=== PATIENT | female | born 1960 | race Caucasian/White ===

== ENCOUNTER 2017-02-21 09:07 | Emergency (ER) | payer OTHER ==
[2017-02-21 09:22] VITALS: PULSE 64; O2SAT 100
--- NOTE | 2017-02-21 09:41 | ERPHSYRPT ---
- History of Present Illness Time Seen by Provider: 02/21/17 09:34 Source: patient Exam Limitations: no limitations Patient Subjective Stated Complaint: ."I think that I might have DM. I have dry mouth, i pee a lot, i drink a lot; i have had blurred vission for 2 weeks. I told my PCP and they said she we can't do another one until March. I have been keeping track of my blood sugars and my fasting was 105-112. after i eat, it goes up to 160s." Triage Nursing Assessment: aox3, breathing easy unlbaored, skin pink warm dry, steady gait Physician History: This is a 56-year-old white female with history of migraines, GERD, anxiety, depression, endometriosis, fibroids, polycystic ovaries, H. pylori, reactive airway disease, mitral valve prolapse, pulmonary hypertension She arrives with complaints that she has been thirsty and urinating a lot and having of blurry vision symptoms for 2 weeks also states that she's been having a dry mouth. Patient states that she's been running fasting blood sugars of 105-1 Sebastian which goes up to 160 after eating. She states that she was concerned that she might be having a problem with her blood sugars she states she contacted her family physician and wanted a hemoglobin A1c was told that he cannot have one at this time. Patient has not had any fevers no nausea no vomiting. Past medical history includes migraines, GERD, anxiety, depression, endometriosis, fibroids, polycystic ovaries, H. pylori, reactive airway disease , mitral valve prolapse,, pulmonary hypertension. Past surgical history includes hysterectomy, lumpectomy, ORIF of right leg and ankle, EGD, right lumpectomy.. Timing/Duration: week(s) (symptoms for 2 weeks) Severity: mild Associated Symptoms: other (lurry vision dry mouth and urinating a lot), No nausea, No vomiting, No abdominal pain, No shortness of breath, No heartburn, No diaphoresis, No cough, No chills, No chest pain, No fever, No headaches, No loss of appetite, No malaise, No rash, No syncope, No seizure, No weakness Allergies/Adverse Reactions: Penicillins Allergy (Mild, Verified 06/10/16 16:14) Hives acetaminophen [From Vicodin] Adverse Reaction (Mild, Verified 06/10/16 16:14) Vomiting cephalexin monohydrate [From Keflex] Adverse Reaction (Mild, Verified 06/10/16 16:14) Stomach Pain codeine [Codeine] Adverse Reaction (Mild, Verified 06/10/16 16:14) Vomiting hydrocodone bitartrate [From Vicodin] Adverse Reaction (Mild, Verified 06/10/16 16:14) Vomiting propoxyphene HCl [From Darvon] Adverse Reaction (Mild, Verified 06/10/16 16:14) Nausea Home Medications: Lorazepam 0.5 mg [Ativan 0.5 MG] 0.05 mg PO TID 05/15/14 [History] Pravastatin Sodium 20 mg PO DAILY 10/20/15 [History] Omeprazole 20 MG [Prilosec 20 mg] 20 mg PO HS 12/05/15 [History] Hyoscyamine Sulfate 0.125 mg [Anaspaz 0.125 mg] 0.125 mg PO AC 06/10/16 [ History] Hx Tetanus, Diphtheria Vaccination/Date Given: Yes (UP TO DATE) Hx Influenza Vaccination/Date Given: Yes Hx Pneumococcal Vaccination/Date Given: No - Review of Systems Constitutional: No Fever, No Chills Eyes: No Symptoms, Vision Changes (blurry vision intermittently) Ears, Nose, & Throat: No Symptoms, Other (dry mouth), No Ear Discharge, No Hearing Changes, No Tinnitus, No Nose Pain, No Nose Congestion, No Nose Discharge, No Sinus Drainage, No Epistaxis, No Mouth Pain, No Mouth Swelling, No Loose Teeth, No Throat Pain, No Throat Swelling, No Hoarse, No Painful Swallowing, No Stridor Respiratory: No Cough, No Dyspnea Cardiac: No Chest Pain, No Edema, No Syncope Abdominal/Gastrointestinal: No Abdominal Pain, No Nausea, No Vomiting, No Diarrhea Genitourinary Symptoms: No Dysuria Musculoskeletal: No Back Pain, No Neck Pain Skin: No Rash Neurological: Headache (occasional headache right lateral temporal area), No Dizziness, No Focal Weakness, No Sensory Changes Psychological: No Symptoms Endocrine: Polyuria All Other Systems: Reviewed and Negative - Past Medical History Pertinent Past Medical History: Yes Neurological History: Migraines ENT History: No Pertinent History Cardiac History: Other Respiratory History: Other Endocrine Medical History: No Pertinent History GI Medical History: GERD History: No Pertinent History Psycho-Social History: Anxiety, Depression Female Reproductive Disorders: Endometriosis, Fibroids Other Medical History: polycystic ovaries, h. pylori, reactive airway disease, MVP, pulmonary hypertension - Past Surgical History Past Surgical History: Yes Neuro Surgical History: No Pertinent History Cardiac: No Pertinent History Respiratory: No Pertinent History Gastrointestinal: No Pertinent History Musculoskeletal: Other Female Surgical History: Hysterectomy, Lumpectomy Other Surgical History: plates and screws in left leg/ankle, right lumpectomy. EGD - Social History Smoking Status: Never smoker Exposure to second hand smoke: No Drug Use: none Patient Lives Alone: No - Female History Hx Now: No - Nursing Vital Signs Nursing Vital Signs: Initial Vital Signs Temperature 97.7 F Temperature Source Oral Pulse Rate 64 Respiratory Rate 14 Blood Pressure [Right Arm] 128/71 Pain Intensity 0 - Physical Exam General Appearance: no apparent distress, alert Eye Exam: PERRL/EOMI, eyes nml inspection Ears, Nose, Throat Exam: normal ENT inspection, TMs normal, pharynx normal, moist mucous membranes Neck Exam: normal inspection, non-tender, supple, full range of motion Respiratory Exam: normal breath sounds, lungs clear, No respiratory distress Cardiovascular Exam: regular rate/rhythm, normal heart sounds, normal peripheral pulses Gastrointestinal/Abdomen Exam: soft, normal bowel sounds, No tenderness, No mass Back Exam: normal inspection, normal range of motion, No CVA tenderness, No vertebral tenderness Extremity Exam: normal inspection, normal range of motion, pelvis stable Neurologic Exam: alert, oriented x 3, cooperative, normal mood/affect, nml cerebellar function, nml station & gait, sensation nml, No motor deficits Skin Exam: normal color, warm, dry, No rash Lymphatic Exam: No adenopathy SpO2 Interpretation: normal (100%) SpO2: 100 Oxygen Delivery: Room Air - Course Nursing assessment & vital signs reviewed: Yes Ordered Tests: Active Orders 24 hr Category Date Time Status Visual Acuity STAT Care 02/21/17 10:08 Active BMP Stat Lab 02/21/17 09:50 Completed CBC W DIFF Stat Lab 02/21/17 09:50 Completed UA W/ MICROSCOPIC Stat Lab 02/21/17 09:50 Completed Lab/Rad Data: Laboratory Result Diagrams 02/21/17 09:50 02/21/17 09:50 Laboratory Results 05/12/17 05/12/17 05/12/17 Range/Units 09:50 09:50 09:50 WBC 5.2 (4.0-10.5) K/mm3 RBC 4.69 (4.1-5.4) M/mm3 Hgb 13.3 (12.0-16.0) gm/dl Hct 40.4 (35-47) % MCV 86.1 (78-100) fl MCH 28.4 (26-32) pg MCHC 32.9 (32-36) g/dl RDW 12.9 (11.5-14.0) % Plt Count 248 (150-450) K/mm3 MPV 10.0 H (6-9.5) fl Gran % 57.7 (36.0-66.0) % Lymphocytes % 31.5 (24.0-44.0) % Monocytes % 8.5 (0.0-12.0) % Eosinophils % 1.7 (0.00-5.0) % Basophils % 0.6 (0.0-0.4) % Basophils # 0.03 (0-0.4) Sodium 142 (136-145) mEq/L Potassium 4.0 (3.5-5.1) mEq/L Chloride 104 (98-107) mEq/L Carbon Dioxide 29.2 (21-32) mEq/L Anion Gap 12.4 (5-15) MEQ/L BUN 10 (9-20) mg/dL Creatinine 0.81 (0.55-1.30) mg/dl Estimated GFR > 60 ML/MIN Glucose 92 (70-110) MG/DL Calcium 9.6 (8.5-10.1) mg/dL Ur Collection Type CCMS Urine Color YELLOW (YELLOW) Urine Appearance CLEAR (CLEAR) Urine pH 5.5 (5-6) Ur Specific [place] 1.010 (1.005-1.025) Urine Protein NEGATIVE (Negative) Urine Glucose (UA) NEGATIVE (NEGATIVE) mg/dL Urine Ketones TRACE (NEGATIVE) Urine Nitrite NEGATIVE (NEGATIVE) Urine Bilirubin NEGATIVE (NEGATIVE) Urine Urobilinogen 0.2 (0-1) mg/dL Urine WBC (Auto) NEGATIVE (NEGATIVE) Urine RBC (Auto) MODERATE (0-5) Shukri/ul Urine Microscopic RBC 0-2 (0-2) /HPF Urine Microscopic WBC 0-2 (0-5) /HPF Ur Epithelial Cells FEW (FEW) /HPF Specimen Received 05-12-17 1000 - Progress Progress: improved Progress Note: 02/21/17 09:38 This is a 56-year-old white female with history of migraines, GERD, anxiety, depression, endometriosis, fibroids, polycystic ovaries, H. pylori, reactive airway disease, mitral valve prolapse, pulmonary hypertension Patient states that she's been having blurry vision dry mouth occasional intermittent right-sided headaches and urinating a lot symptoms for several weeks. She states that she contacted her family doctor after looking on the Internet for her possible symptoms she states that she wanted to get an A1c ran however her doctor states she is not eligible to receive this at this time. Patient has not had any fevers nausea vomiting diarrhea melena hematochezia no other complaints Patient really does not appear to be in acute distress her Accu-Chek is 89%. Patient's physical examination is normal. Patient's vitals are normal. 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 Will await laboratory data including CBC, BMP and UA. Anticipate patient will need to follow-up with her family doctor for further workup. 02/21/17 09:43 02/21/17 10:19 Patient's vision is tested by the patient's nurse patient with 20/50 vision with both eyes, right eye, left eye, all uncorrected. Patient's labs are normal. Patient's vitals are normal. 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 02/21/17 10:24 Patient's vitals are all stable laboratory data is all stable. Patient does not appear to be in any distress whatsoever at this time. Will refer patient back to her family doctor and/or her supervisor warping department. Patient is asking for a diabetic diet Will see if the nurse has one available for her. - Departure Time of Disposition: 10:25 Departure Disposition: Home (she slipped) Clinical Impression: Vision disturbance, Frequency of urination Condition: Fair Critical Care Time: No Additional Instructions: Return home. Plenty of fluids. Follow-up with your family doctor. Follow-up with your supervisor warping department. Return for acute distress or for severe symptoms.
[2017-02-21 10:10] LABS: COMPLETE URINE MICROSCOPIC? YES; Collection Type CCMS; Epithelial Cells FEW /HPF (FEW); Ph 5.5 (5-6); WBC 0-2 /HPF (0-5)
[2017-02-21 10:12] LABS: ANION GAP 12.4 MEQ/L (5-15); BLOOD UREA NITROGEN 10 mg/dL (9-20); CHLORIDE 104 mEq/L (98-107); Carbon Dioxide 29.2 mEq/L (21-32); Glucose 92 MG/DL (70-110); SODIUM 142 mEq/L (136-145)
[2017-02-21 10:14] LABS: BASOPHIL % 0.6 % (0.0-0.4); Eosinophil % 1.7 % (0.00-5.0); Granulocytes % 57.7 % (36.0-66.0); Lymphocytes % 31.5 % (24.0-44.0); Mean Cell Volume 86.1 fl (78-100); Mean Corpuscular Hemoglobin 28.4 pg (26-32); Monocytes % 8.5 % (0.0-12.0); Platelet Count 248 K/mm3 (150-450); Red Blood Count 4.69 M/mm3 (4.1-5.4); Red Cell Distribution Width 12.9 % (11.5-14.0); White Blood Count 5.2 K/mm3 (4.0-10.5)
[2017-02-21 10:54] VITALS: BP 126/68
== END 2017-02-21 10:52 ==
LOC: ED 09:07
DX: H53.9 Unspecified visual disturbance (principal); R35.0 Frequency of micturition; I10 Essential (primary) hypertension; R68.2 Dry mouth, unspecified
CPT/HCPCS: 36415; 80048; 81000; 82962; 85025; 99283

== ENCOUNTER 2017-03-03 20:39 | Emergency (ER) | payer OTHER ==
--- NOTE | 2017-03-03 21:07 | ERPHSYRPT ---
- History of Present Illness Time Seen by Provider: 03/03/17 20:56 Source: patient Exam Limitations: no limitations Patient Subjective Stated Complaint: PT REPORTS MISSING A STEP ET HURTING RIGHT FOOT-DENIES NUMBNESS OR TINLGING-REPORTS PAIN ET SWELLING Triage Nursing Assessment: PT PALE WARM ET [id number] ET SWELLING NOTED TO RIGHT FOOT-PEDAL PULSE REGULAR-CAP REFILL 3 SECONDS Physician History: This is a 56-year-old white female with history of migraines GERD, anxiety, depression, endometriosis, fibroids, polycystic ovaries Patient arrives with complaint of pain in her right lateral foot symptoms for 1- 1/2 hours. According to patient she missed a step stepping down stairs she is having pain in her right foot dorsally. She has no ankle pain in the leg pain no other complaints. Patient states she took acetaminophen prior to arrival she does not want any other pain medications. Past medical history includes migraines, GERD, anxiety, depression, endometriosis, fibroids, polycystic ovaries, H. pylori, reactive airway disease , mitral valve prolapse, hypertension. Past surgical history includes hysterectomy and lumpectomy ORIF right leg and ankle, EGD, right lumpectomy. Method of Injury: other (missed a step while going down stairs) Occurred: hours ago (1-1/2 hours ago) Lower Extremities Pain: foot: right Modifying Factors: Improves With: nothing Associated Symptoms: other (pain with walking) Allergies/Adverse Reactions: Penicillins Allergy (Mild, Verified 03/03/17 20:52) Hives acetaminophen [From Vicodin] Adverse Reaction (Mild, Verified 03/03/17 20:52) Vomiting cephalexin monohydrate [From Keflex] Adverse Reaction (Mild, Verified 03/03/17 20:52) Stomach Pain codeine [Codeine] Adverse Reaction (Mild, Verified 03/03/17 20:52) Vomiting hydrocodone bitartrate [From Vicodin] Adverse Reaction (Mild, Verified 03/03/17 20:52) Vomiting propoxyphene HCl [From Darvon] Adverse Reaction (Mild, Verified 03/03/17 20:52) Nausea Home Medications: Lorazepam 0.5 mg [Ativan 0.5 MG] 0.5 mg PO TID 05/15/14 [History] Pravastatin Sodium 20 mg PO DAILY 10/20/15 [History] Esomeprazole Magnesium [Nexium] 40 mg PO DAILY 03/03/17 [History] Hx Tetanus, Diphtheria Vaccination/Date Given: Yes Hx Influenza Vaccination/Date Given: No Hx Pneumococcal Vaccination/Date Given: No Immunizations Up to Date: Yes - Review of Systems Constitutional: No Fever, No Chills Eyes: No Symptoms Ears, Nose, & Throat: No Symptoms Respiratory: No Cough, No Dyspnea Cardiac: No Chest Pain, No Edema, No Syncope Abdominal/Gastrointestinal: No Abdominal Pain, No Nausea, No Vomiting, No Diarrhea Genitourinary Symptoms: No Dysuria Musculoskeletal: Other (rright foot pain) Skin: No Rash Neurological: No Dizziness, No Focal Weakness, No Sensory Changes Psychological: No Symptoms Endocrine: No Symptoms All Other Systems: Reviewed and Negative - Past Medical History Pertinent Past Medical History: Yes Neurological History: Migraines ENT History: No Pertinent History Cardiac History: Other Respiratory History: Other Endocrine Medical History: No Pertinent History GI Medical History: GERD History: No Pertinent History Psycho-Social History: Anxiety, Depression Female Reproductive Disorders: Endometriosis, Fibroids Other Medical History: polycystic ovaries, h. pylori, reactive airway disease, MVP, pulmonary hypertension - Past Surgical History Past Surgical History: Yes Neuro Surgical History: No Pertinent History Cardiac: No Pertinent History Respiratory: No Pertinent History Gastrointestinal: No Pertinent History Musculoskeletal: Other Female Surgical History: Hysterectomy, Lumpectomy Other Surgical History: plates and screws in left leg/ankle, right lumpectomy. EGD - Social History Smoking Status: Never smoker Exposure to second hand smoke: No Drug Use: none Patient Lives Alone: No - Female History Hx Last Menstrual Period: HYSTERECTOMY Hx Now: No - Nursing Vital Signs Nursing Vital Signs: Initial Vital Signs Temperature 98.1 F Temperature Source Oral Pulse Rate 74 Respiratory Rate 18 Blood Pressure [] 143/75 Pain Intensity 7 - Physical Exam General Appearance: alert Eyes, Ears, Nose, Throat Exam: moist mucous membranes Neck Exam: non-tender, supple Cardiovascular/Respiratory Exam: chest non-tender, normal breath sounds, regular rate/rhythm, no respiratory distress Gastrointestinal/Abdominal Exam: non-tender, guarding Back Exam: normal inspection, No vertebral tenderness Hips Exam: bilateral: non-tender, normal inspection, normal range of motion, no evidence of injury Legs Exam: bilateral leg: non-tender, normal inspection, normal range of motion , no evidence of injury Knees Exam: bilateral knee: non-tender, normal inspection, normal range of motion, no evidence of injury Ankle Exam: bilateral ankle: non-tender, normal inspection, normal range of motion, no evidence of injury Foot Exam: right foot: other (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 , decreased range of motion right foot and toes secondary to pain, dorsal pedal posterior tibial pulsees intact 2/4, good capillary refill right toes), left foot: non-tender, normal inspection, normal range of motion Neuro/Tendon Exam: normal sensation, normal motor functions Mental Status Exam: alert, oriented x 3, cooperative Skin Exam: normal color, warm, dry SpO2 Interpretation: normal (98%) SpO2: 98 Oxygen Delivery: Room Air - Course Nursing assessment & vital signs reviewed: Yes - Radiology Exams Right Foot X-ray Interpretation: Interpreted by me, Negative, No Fracture, No Subluxation Ordered Tests: Active Orders 24 hr Category Date Time Status Julian Bandage Application -[facility] STAT Care 03/03/17 21:48 Active Splint STAT Care 03/03/17 21:48 Active FOOT (MINIMUM 3 VIEWS) Stat Exams 03/03/17 21:01 Taken - Progress Progress: improved Progress Note: 03/03/17 22:05 Patient's x-ray no obvious fractures. Will place Julian wrap and give patient postop shoe. Patient was offered crutches she does not want them. She wants only to take Tylenol for pain. Will place patient on limited standing and walking for 72 hours she is to return to work on Friday when she normally returns. - Departure Time of Disposition: 22:06 Departure Disposition: Home Clinical Impression: Right foot pain, Right foot sprain Condition: Fair Critical Care Time: No Additional Instructions: Return home. Ice and elevate your right foot 24-48 hours. Tylenol as needed for pain. Limited standing and walking for 72 hours. Follow-up with your family doctor if symptoms are worse, no better in 48 hours, or persist longer than one week. Return for acute distress or for severe symptoms. Your x-rays have been preliminarily read it'll be reread tomorrow you will be contacted if any discrepancies are noted.
[2017-03-03 22:23] VITALS: BP 135/66; PULSE 72; O2SAT 97
--- NOTE | 2017-03-04 09:01 | XRAY ---
Indication: Lateral tarsal pain, bruising, and swelling following injury. Comparison: None 3 nonweightbearing views of the right foot demonstrates small second proximal phalanx bone cyst. No other bony, articular, or soft tissue abnormalities.
== END 2017-03-03 22:22 | disposition home or self-care (01) ==
LOC: ED 20:39
DX: M79.671 Pain in right foot (principal); S93.601A Unspecified sprain of right foot, initial encounter; W10.9XXA Fall (on) (from) unspecified stairs and steps, initial encounter
CPT/HCPCS: 73630; 99284

== ENCOUNTER 2025-01-17 20:24 | Emergency (ER) | payer MEDICARE ==
--- NOTE | 2025-01-17 20:28 | ERPHSYRPT ---
- History of Present Illness Time Seen by Provider: 01/17/25 20:27 Source: patient, family Exam Limitations: no limitations Physician History: This is a 64-year-old white female patient who presents with itching after taking a first dose of doxycycline antibiotic that was given to her yesterday but filled today to treat a bronchitis. Patient has been coughing intermittently for 2 weeks. She denies chest pain. Patient has a history of migraine headaches, anxiety, reactive airway disease, GERD and hyperlipidemia. Quality: itchy Severity: mild Location: generalized Possible Causes: medications Allergies/Adverse Reactions: Penicillins Allergy (Mild, Verified 03/03/17 20:52) Hives acetaminophen [From Vicodin] Adverse Reaction (Mild, Verified 03/03/17 20:52) Vomiting cephalexin monohydrate [From Keflex] Adverse Reaction (Mild, Verified 03/03/17 20:52) Stomach Pain codeine [Codeine] Adverse Reaction (Mild, Verified 03/03/17 20:52) Vomiting hydrocodone bitartrate [From Vicodin] Adverse Reaction (Mild, Verified 03/03/17 20:52) Vomiting propoxyphene HCl [From Darvon] Adverse Reaction (Mild, Verified 03/03/17 20:52) Nausea Home Medications: Lorazepam 0.5 mg [Ativan 0.5 MG] 0.5 mg PO TID 05/15/14 [History] Pravastatin Sodium 20 mg PO DAILY 10/20/15 [History] Esomeprazole Magnesium [Nexium] 40 mg PO DAILY 03/03/17 [History] Hx Tetanus, Diphtheria Vaccination/Date Given: Yes Hx Influenza Vaccination/Date Given: No Hx Pneumococcal Vaccination/Date Given: No Travel Risk - International Travel Have you traveled outside of the country in past 3 weeks: No - Emerging Infectious Disease Are you exhibiting symptoms associated with any current EIDs: No - Review of Systems Constitutional: No Symptoms Eyes: No Symptoms Ears, Nose, & Throat: No Symptoms Respiratory: No Symptoms Cardiac: No Symptoms Abdominal/Gastrointestinal: No Symptoms Genitourinary Symptoms: No Symptoms Musculoskeletal: No Symptoms Skin: Other (Patient complains of mild generalized itching) Neurological: No Symptoms Psychological: No Symptoms Endocrine: No Symptoms Hematologic/Lymphatic: No Symptoms Immunological/Allergic: No Symptoms All Other Systems: Reviewed and Negative - Past Medical History Pertinent Past Medical History: Yes Neurological History: Migraines ENT History: No Pertinent History Cardiac History: Other Respiratory History: Other Endocrine Medical History: No Pertinent History GI Medical History: GERD History: No Pertinent History Psycho-Social History: Anxiety, Depression Female Reproductive Disorders: Endometriosis, Fibroids Other Medical History: polycystic ovaries, h. pylori, reactive airway disease, MVP, pulmonary hypertension - Past Surgical History Past Surgical History: Yes Neuro Surgical History: No Pertinent History Cardiac: No Pertinent History Respiratory: No Pertinent History Gastrointestinal: No Pertinent History Musculoskeletal: Other Female Surgical History: Hysterectomy, Lumpectomy Other Surgical History: plates and screws in left leg/ankle, right lumpectomy. EGD - Social History Smoking Status: Never smoker Exposure to second hand smoke: No Drug Use: none Patient Lives Alone: No - Nursing Vital Signs Nursing Vital Signs: Initial Vital Signs Temperature 98.0 F 01/17/25 20:25 Pulse Rate 83 01/17/25 20:25 Respiratory Rate 18 01/17/25 20:25 Blood Pressure 182/93 01/17/25 20:25 O2 Sat by Pulse Oximetry 97 01/17/25 20:25 Pain Scale Pain Intensity 0 - Physical Exam General Appearance: no apparent distress, alert, anxiety Eye Exam: PERRL/EOMI, eyes nml inspection Ears, Nose, Throat Exam: normal ENT inspection, moist mucous membranes Neck Exam: normal inspection, non-tender, supple, full range of motion Respiratory Exam: normal breath sounds, lungs clear, airway intact, No chest tenderness, No respiratory distress Cardiovascular Exam: regular rate/rhythm, normal heart sounds, normal peripheral pulses Gastrointestinal/Abdomen Exam: soft, normal bowel sounds, No tenderness Pelvic Exam: not done Rectal Exam: not done Back Exam: normal inspection, normal range of motion, No CVA tenderness, No vertebral tenderness Extremity Exam: normal inspection, normal range of motion, pelvis stable Neurologic Exam: alert, oriented x 3, cooperative, 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 as tested, nml cerebellar function, nml station & gait, sensation nml Skin Exam: normal color, warm, dry, other (No obvious skin rash) Lymphatic Exam: No adenopathy SpO2 Interpretation: normal O2 Delivery: Room Air - Course Nursing assessment & vital signs reviewed: Yes Ordered Tests: Active Orders 24 hr Category Date Time Status CHEST 1 VIEW (PORTABLE) Stat Exams 01/17/25 21:01 Taken Medication Summary Discontinued Medications Generic Name Dose Route Start Last Admin Trade Name Claude PRPineda Reason Stop Dose Admin Diphenhydramine HCl 25 mg 01/17/25 21:07 01/17/25 21:19 Diphenhydramine Hcl 25 Mg Capsule PO 01/17/25 21:08 25 mg STAT ONE Administration Diphenhydramine HCl Confirm 01/17/25 21:16 Diphenhydramine Hcl 25 Mg Capsule Administered 01/17/25 21:17 Dose 25 mg .ROUTE .STK-MED ONE Famotidine 40 mg 01/17/25 21:07 01/17/25 21:19 Famotidine 20 Mg Tablet PO 01/17/25 21:08 40 mg STAT ONE Administration Famotidine Confirm 01/17/25 21:16 Famotidine 20 Mg Tablet Administered 01/17/25 21:17 Dose 40 mg .ROUTE .STK-MED ONE Lab/Rad Data: Laboratory Results 01/17/25 01/17/25 Range/Units 21:05 21:05 Influenza Type A Ag NEGATIVE (NEGATIVE) Influenza Type B Ag NEGATIVE (NEGATIVE) RSV (PCR) NEGATIVE (NEGATIVE) SARS-CoV-2 (PCR) NEGATIVE (NEGATIVE) Group A Strep Antibody NOT DETECTED (NEGATIVE) - Progress Progress: unchanged Progress Note: 01/17/25 21:05 My medical decision making and the assignment of low complexity of this patient's medical issue today is based on review the patient's past medical history, review the patient's medication list, review the patient drug allergy list, history present illness and physical findings on examination. The workup in this patient includes chest x-ray, strep swab, viral swabs. We will also provide the patient with Pepcid orally and 25 mg of Benadryl. We will avoid prednisone as she is concerned she might have a reaction to it but does not recall ever taking steroids in the past. Differential diagnosis includes but is not limited to anxiety, allergic reaction to doxycycline, bronchitis 01/17/25 21:52 I interpreted the patient's laboratory data results. Based on the laboratory data results there are no acute, emergent medical issues. The chest x-ray preliminary report was interpreted by me. I see no acute cardiopulmonary process. Counseled pt/family regarding: lab results, diagnosis, need for follow-up, rad results Medical Desision Making - Diagnostic Testing Diagnostic test were ordered, analyzed, and reviewed by me: Yes Radiological Interpretation: Interpreted by me, Teleradiologist Report - Risk of complications The pt has a mod risk of morbidity or mortality based on: Need for prescription drug management - Departure Departure Disposition: Home Clinical Impression: Upper respiratory infection, Medication reaction Condition: Stable Critical Care Time: No Referrals: SANJU OSORIO MD [Primary Care Provider] - Follow up/PCP as directed Additional Instructions: Stop your doxycycline. Use Benadryl 25 mg orally every 8 hours for the next 3 days. Take your Pepcid as prescribed for the next 3 days. Call your prescribing provider tomorrow, 01/18/2025, to make arrangements for follow-up appointment for further evaluation management. Prescriptions: Famotidine 20 mg [Pepcid 20 MG] 20 mg PO DAILY #5 tablet Azithromycin 250 mg [Zithromax 250 MG TABLET] 250 mg PO ZPACK #4 tablet
[2025-01-17 21:03] VITALS: PULSE 83; RESP 18; TEMP 98
[2025-01-17] MEDS ORDERED: Pepcid 20 MG ONE (21:16)
[2025-01-17] MEDS ORDERED: BENADRYL 25 MG CAPSULE ONE (21:16)
[2025-01-17] MEDS: Pepcid 20 MG PO ONE (21:19)
[2025-01-17] MEDS: BENADRYL 25 MG CAPSULE PO ONE (21:19)
[2025-01-17 21:47] LABS: INFLUENZA A NEGATIVE (NEGATIVE); INFLUENZA B NEGATIVE (NEGATIVE); RESPIRATORY SYNCTIAL VIRUS NEGATIVE (NEGATIVE); SARS-CoV-2 Xpert Express NEGATIVE (NEGATIVE)
[2025-01-17] MEDS ORDERED: Zithromax 250 MG TABLET ONE (22:04)
[2025-01-17] MEDS: Zithromax 250 MG TABLET PO ONE (22:05)
[2025-01-17 22:13] VITALS: BP 170/76; O2SAT 100
--- NOTE | 2025-01-18 08:39 | XRAY ---
Indication: Cough. Comparison: March 05, 2012 Portable chest again hyperinflated and clear. Heart not enlarged. Bony thorax intact with osteopenia. No new/acute findings.
== END 2025-01-17 22:21 | disposition home or self-care (01) ==
LOC: ED 20:24
DX: L29.9 Pruritus, unspecified (principal); T36.4X5A Adverse effect of tetracyclines, initial encounter; J06.9 Acute upper respiratory infection, unspecified; R05.1 Acute cough; E78.5 Hyperlipidemia, unspecified; Z79.899 Other long term (current) drug therapy
CPT/HCPCS: 0241U; 71045; 87651; 99284; A9270-GY